=== PATIENT | female | born 1985 | race Caucasian/White ===

== ENCOUNTER 2017-12-28 05:08 | Emergency (ER) | payer MEDICAID, OTHER ==
[~2017-12-28] VITALS: Ht 162.6 cm; Wt 59.0 kg
[2017-12-28 08:28] VITALS: BP 119/84
== END 2017-12-28 08:30 | disposition home or self-care (01) ==
LOC: ER 05:57
DX: K43.9 Ventral hernia without obstruction or gangrene (principal); R03.0 Elevated blood-pressure reading, without diagnosis of hypertension; F17.210 Nicotine dependence, cigarettes, uncomplicated
CPT/HCPCS: 99283; Z7610